=== PATIENT | male | born 1940 | race Caucasian/White ===

== ENCOUNTER 2019-09-01 19:33 | Inpatient (IN) | payer MEDICARE ==
[2019-09-01 19:36] LABS: Glucose,Whole Blood 153 mg/dL (75-99)
--- NOTE | 2019-09-01 20:02 | ED ---
General Adult HPI - General Chief complaint: Neuro Symptoms/Deficit Stated complaint: CVA Time Seen by Provider: 09/01/19 19:34 Source: patient, EMS, RN notes reviewed Mode of arrival: EMS Limitations: physical limitation - History of Present Illness Initial comments: Patient is a pleasant 79-year-old male presenting to the emergency Department with left-sided weakness. Onset of symptoms was around 645. Patient felt lightheaded and lowered himself to the ground. Patient did not fall or have injury. Patient had left arm and leg weakness. Weakness was severe and this was confirmed by EMS. EMS states patient has significantly improved since they first saw him. Patient is agreement with this. Patient reportedly did have slurred speech however this has resolved. Patient reportedly had a near flaccid weakness of the left side. Patient was in hospital at [place] last week. Patient had similar symptoms approximately 5 days ago. Patient states he was just discharged earlier today. - Related Data Allergies Allergy/AdvReac Type Severity Reaction Status Date / Time No Known Allergies Allergy Verified 09/01/19 20:25 Review of Systems ROS Statement: Those systems with pertinent positive or pertinent negative responses have been documented in the HPI. ROS Other: All systems not noted in ROS Statement are negative. Constitutional: Denies: fever Eyes: Denies: eye pain ENT: Denies: ear pain Respiratory: Denies: cough Cardiovascular: Denies: chest pain Endocrine: Denies: fatigue Gastrointestinal: Denies: abdominal pain Genitourinary: Denies: dysuria Musculoskeletal: Denies: back pain Skin: Denies: rash Neurological: Reports: weakness. Denies: headache, confusion Past Medical History Past Medical History: CVA/TIA, Diabetes Mellitus, Hyperlipidemia, Hypertension History of Any Multi-Drug Resistant Organisms: None Reported Past Surgical History: Appendectomy, Hernia Repair, Orthopedic Surgery Additional Past Surgical History / Comment(s): neck cyst ,nasal surgery,rt foot Past Psychological History: No Psychological Hx Reported Smoking Status: Never smoker Past Alcohol Use History: None Reported Past Drug Use History: None Reported General Exam Limitations: physical limitation General appearance: alert, in no apparent distress Head exam: Present: normocephalic Eye exam: Present: normal appearance, PERRL, EOMI ENT exam: Present: normal oropharynx Neck exam: Present: normal inspection Respiratory exam: Present: normal lung sounds bilaterally Cardiovascular Exam: Present: regular rate, normal rhythm GI/Abdominal exam: Present: soft. Absent: tenderness Extremities exam: Present: normal inspection Neurological exam: Present: alert, oriented X3, CN II-XII intact (Except for minimal left facial droop and slight decreased sensation left lower face) Expanded Neurological exam: Present: protecting the airway Patient oriented to: Present: person, place, time Speech: Present: fluid speech Cranial nerves: EOM's Intact: Normal, Facial Sensation: Abnormal Left (Left lower face) Sensory exam: Upper Extremity Light Touch: Normal, Lower Extremity Light Touch: Normal Motor strength exam: RUE: 5, LUE: 4, RLE: 5, LLE: 4 Eye Response: (4) open spontaneously Motor Response: (6) obeys commands Verbal Response: (5) oriented Psychiatric exam: Present: normal affect, normal mood Skin exam: Present: normal color Course Vital Signs 09/01/19 09/01/19 09/01/19 19:35 19:45 20:00 Temperature 98.8 F Pulse Rate 66 68 72 Respiratory 18 20 20 Rate Blood Pressure 142/107 136/82 111/56 O2 Sat by Pulse 96 100 97 Oximetry 09/01/19 09/01/19 20:15 20:30 Temperature 98.0 F Pulse Rate 68 68 Respiratory 18 20 Rate Blood Pressure 99/58 121/65 O2 Sat by Pulse 99 98 Oximetry - Reevaluation(s) Reevaluation #1: 09/01/19 19:[address] Coy who will review the films. He states patient's are not being transferred at this time secondary to covid. 09/01/19 20:40 Dr. Morales did call back again and recommends Balint as well as aspirin and Lipitor. He states patient should be admitted and they can call him if needed. Case also discussed with practitioner Umu Mazariegos who will admit covering for Dr. Tyler, who admits for hospital call. 09/01/19 20:41 Patient reevaluated and does not have apparent weakness of his leg. Arm drift, mild, appears unchanged. EKG Findings - EKG Comments: EKG Findings:: Normal sinus rhythm 73. For screening AV block AL of 202. QRS 78. QT 394. QTC 434. Normal axis. Low QRS voltage. Septal Q waves. No acu te ST change. Medical Decision Making - Lab Data Result diagrams: 09/01/19 19:55 09/01/19 19:55 Lab Results 09/01/19 09/01/19 09/01/19 Range/Units 19:35 19:55 19:55 WBC 8.0 (3.8-10.6) k/uL RBC 4.77 (4.30-5.90) m/uL Hgb 15.5 (13.0-17.5) gm/dL Hct 44.3 (39.0-53.0) % MCV 92.9 (80.0-100.0) fL MCH 32.5 (25.0-35.0) pg MCHC 35.0 (31.0-37.0) g/dL RDW 12.8 (11.5-15.5) % Plt Count 168 (150-450) k/uL Neutrophils % 74 % Lymphocytes % 15 % Monocytes % 7 % Eosinophils % 1 % Basophils % 0 % Neutrophils # 5.9 (1.3-7.7) k/uL Lymphocytes # 1.2 (1.0-4.8) k/uL Monocytes # 0.5 (0-1.0) k/uL Eosinophils # 0.1 (0-0.7) k/uL Basophils # 0.0 (0-0.2) k/uL PT 10.3 (9.0-12.0) sec INR 1.0 (<1.2) APTT 22.7 (22.0-30.0) sec Sodium (137-145) mmol/L Potassium (3.5-5.1) mmol/L Chloride (98-107) mmol/L Carbon Dioxide (22-30) mmol/L Anion Gap mmol/L BUN (9-20) mg/dL Creatinine (0.66-1.25) mg/dL Est GFR (CKD-EPI)AfAm (>60 ml/min/1.73 sqM) Est GFR (CKD-EPI)NonAf (>60 ml/min/1.73 sqM) Glucose (74-99) mg/dL POC Glucose (mg/dL) 153 H (75-99) mg/dL POC Glu Head Doffer ID [place], Krys Calcium (8.4-10.2) mg/dL Total Bilirubin (0.2-1.3) mg/dL AST (17-59) U/L ALT (4-49) U/L Alkaline Phosphatase (38-126) U/L Total Protein (6.3-8.2) g/dL Albumin (3.5-5.0) g/dL 09/01/19 Range/Units 19:55 WBC (3.8-10.6) k/uL RBC (4.30-5.90) m/uL Hgb (13.0-17.5) gm/dL Hct (39.0-53.0) % MCV (80.0-100.0) fL MCH (25.0-35.0) pg MCHC (31.0-37.0) g/dL RDW (11.5-15.5) % Plt Count (150-450) k/uL Neutrophils % % Lymphocytes % % Monocytes % % Eosinophils % % Basophils % % Neutrophils # (1.3-7.7) k/uL Lymphocytes # (1.0-4.8) k/uL Monocytes # (0-1.0) k/uL Eosinophils # (0-0.7) k/uL Basophils # (0-0.2) k/uL PT (9.0-12.0) sec INR (<1.2) APTT (22.0-30.0) sec Sodium 135 L (137-145) mmol/L Potassium 4.6 (3.5-5.1) mmol/L Chloride 101 (98-107) mmol/L Carbon Dioxide 25 (22-30) mmol/L Anion Gap 9 mmol/L BUN 29 H (9-20) mg/dL Creatinine 1.47 H (0.66-1.25) mg/dL Est GFR (CKD-EPI)AfAm 52 (>60 ml/min/1.73 sqM) Est GFR (CKD-EPI)NonAf 45 (>60 ml/min/1.73 sqM) Glucose 150 H (74-99) mg/dL POC Glucose (mg/dL) (75-99) mg/dL POC Glu Head Doffer ID Calcium 10.0 (8.4-10.2) mg/dL Total Bilirubin 0.7 (0.2-1.3) mg/dL AST 29 (17-59) U/L ALT 19 (4-49) U/L Alkaline Phosphatase 74 (38-126) U/L Total Protein 7.3 (6.3-8.2) g/dL Albumin 4.3 (3.5-5.0) g/dL Critical Care Time Critical Care Time: Yes Total Critical Care Time: 31 Disposition Clinical Impression: Cerebrovascular accident (CVA) Disposition: ADMITTED IP TO THIS HOSP Is patient prescribed a controlled substance at d/c from ED?: No Referrals: Stephon Willis MD [Primary Care Provider] - 1-2 days Decision Time: 20:41
--- NOTE | 2019-09-01 20:03 | CT ---
EXAMINATION TYPE: CT brain wo con for TPA DATE OF EXAM: 09/01/2019 COMPARISON: None INDICATION: cva DLP: 1176.4 mGycm, Automated exposure control for dose reduction was used. CONTRAST: None CT of the brain is performed utilizing 3 mm thick sections through the posterior fossa and 3 mm thick sections through the remaining calvarium. Study is performed within 24 hours of arrival to the hosp ital. No abnormal hyperdensity is present to suggest an acute intracranial hemorrhage. No mass lesion is evident. No acute infarcts are evident. There is a hypodensity within the posterior lateral right brain stem. Hypodensity is in the right lisandra. These are age indeterminant. Correlate with symptoms. Ventricles and sulci are appropriate for the patient age. Paranasal sinuses and mastoid air cells within the [id number] are clear. IMPRESSIONS: 1. Hypodensity within the brainstem and right lisandra. These could be lacunar infarcts of indeterminat e age. Correlate with the patient's symptoms.
--- NOTE | 2019-09-01 20:04 | XR ---
EXAMINATION TYPE: XR chest 2V DATE OF EXAM: 09/01/2019 COMPARISON: None INDICATION: Altered mental status TECHNIQUE: Frontal and lateral views of the chest are obtained. FINDINGS: The heart size is normal. The pulmonary vasculature is normal. The lungs are clear. Old right rib fractures along the posterior lateral right ribs. IMPRESSION: 1. No acute pulmonary process.
[2019-09-01 20:08] LABS: Basophils % (A) 0 %; Eosinophils # (A) 0.1 k/uL (0-0.7); Eosinophils % (A) 1 %; HCT 44.3 % (39.0-53.0); HGB 15.5 gm/dL (13.0-17.5); Lymphocytes # (A) 1.2 k/uL (1.0-4.8); Lymphocytes % (A) 15 %; MCH 32.5 pg (25.0-35.0); MCV 92.9 fL (80.0-100.0); Mean Platelet Volume 8.2; Monocytes # (A) 0.5 k/uL (0-1.0); Monocytes % (A) 7 %; Neutrophils # (A) 5.9 k/uL (1.3-7.7); Neutrophils % (A) 74 %; Platelet Count 168 k/uL (150-450); RBC 4.77 m/uL (4.30-5.90); RDW 12.8 % (11.5-15.5)
[2019-09-01 20:16] LABS: Partial Thromboplastin Time 22.7 sec (22.0-30.0); Prothrombin Time 10.3 sec (9.0-12.0)
[2019-09-01 20:36] LABS: Albumin 4.3 g/dL (3.5-5.0); Potassium 4.6 mmol/L (3.5-5.1); Total Bilirubin 0.7 mg/dL (0.2-1.3); Total Protein 7.3 g/dL (6.3-8.2)
[2019-09-01] MEDS ORDERED: ASPIRIN 81 MG PO STA (20:42)
[2019-09-01] MEDS ORDERED: TICAGRELOR 90 MG TAB PO STA (20:42)
[2019-09-01] MEDS ORDERED: ATORVASTATIN 80 MG TAB PO STA (20:42)
--- NOTE | 2019-09-01 20:54 | CT ---
EXAMINATION TYPE: CT angio head neck DATE OF EXAM: 09/01/2019 COMPARISON: CT brain today HISTORY: 79-year-old male CVA, stroke TECHNIQUE: Contiguous axial scanning of the head and neck performed with IV Contrast, patient injecte d with 65 mL of Isovue 370. Coronal and sagittal MIP reconstructions performed. 3-D reconstructions w ill be generated later. CT DLP: 571 mGycm Automated exposure control for dose reduction was used. FINDINGS: HEAD: Left vertebral artery slightly more dominant. Both vertebral and basilar arteries are patent as is th e remainder of the posterior circulation. Mild to moderate atherosclerotic change throughout the bilateral carotid siphons. No significant sten osis is identified of the anterior circulation and no evident occlusion of the internal carotid arter ies. No aneurysmal change is seen. NECK: Mild emphysematous changes in the visualized upper lungs. Conventional arch was a branching anatomy. Mild atherosclerotic calcifications at the origin of the right vertebral artery. Left vertebral arter y slightly more dominant. Both vertebral arteries are otherwise patent throughout their course. The right common carotid artery is patent. Moderate atherosclerotic change of the right bifurcation. Mild, less than 50% atherosclerotic narrowing distal right common carotid artery. Mild to moderate, approximately 50% narrowing right carotid bulb. Remainder of the right internal car otid artery is patent. Left common carotid artery is patent. Moderate atherosclerotic change of the left bifurcation with [id number], just under 50% atheros clerotic narrowing at the left carotid bulb. Remainder of the left internal carotid artery is patent. IMPRESSION: NECK: 1. ATHEROSCLEROTIC CHANGE AT THE BILATERAL CAROTID BIFURCATIONS WITH MODERATE (APPROXIMATELY 50%) JOSE MIGUEL NOSIS OF THE RIGHT CAROTID BULB. ADDITIONAL MILD, LESS THAN 50% ATHEROSCLEROTIC STENOSIS DISTAL RIGHT COMMON CAROTID ARTERY. 2. MILD TO MODERATE, JUST UNDER 50% NARROWING AT THE LEFT CAROTID BULB. 3. SLIGHTLY DOMINANT LEFT VERTEBRAL ARTERY. MILD ATHEROSCLEROTIC NARROWING AT THE ORIGIN OF THE RIGHT VERTEBRAL ARTERY. HEAD: 1. MILD TO MODERATE ATHEROSCLEROTIC CALCIFICATIONS THROUGHOUT THE BILATERAL CAROTID SIPHONS. NO LARGE VESSEL INTRACRANIAL ARTERIAL OCCLUSION, SIGNIFICANT STENOSIS, OR ANEURYSMAL CHANGE SEEN. 2. SLIGHTLY MORE DOMINANT LEFT VERTEBRAL ARTERY.
[2019-09-01] MEDS: SODIUM CHLORIDE 0.9% 1,000 ML IV SCH (20:57)
[2019-09-01] MEDS: TICAGRELOR 90 MG TAB PO SCH (21:35)
[2019-09-01] MEDS: ATORVASTATIN 80 MG TAB PO SCH (21:35)
[2019-09-02 03:58] LABS: Cholesterol 117 mg/dL (<200); HDL Cholesterol 39 mg/dL (40-60); LDL Cholesterol,Calculated 61 mg/dL (0-99); Triglycerides 85 mg/dL (<150)
[2019-09-02] MEDS: TICAGRELOR 90 MG TAB PO SCH (09:24)
[2019-09-02] MEDS: ASPIRIN 81 MG PO SCH (09:24)
[2019-09-02] MEDS ORDERED: ACETAMINOPHEN TAB 500 MG TAB PO PRN (13:23)
[2019-09-02] MEDS ORDERED: ALPRAZolam 0.25 MG TAB PO PRN (13:23)
--- NOTE | 2019-09-02 15:11 | MR ---
EXAMINATION TYPE: MR angio head wo con DATE OF EXAM: 09/02/2019 COMPARISON: Correlation CTA 2019 HISTORY: 79-year-old male Dizziness, slurred speech, left arm weakness/numbness TECHNIQUE: High-resolution 3-D [id number] imaging of the [place]. Rotational 3-D reconst ructions generated on a dedicated independent workstation. FINDINGS: Dominant left vertebral artery. Both vertebral and basilar arteries are patent as is the remainder of the posterior circulation. Prominent right posterior communicating artery. Minimal atherosclerotic irregularity within the carotid siphons without significant narrowing. The an terior circulation is patent. No aneurysmal change is seen. IMPRESSION: No large vessel intracranial arterial occlusion, significant stenosis, or aneurysmal change.
--- NOTE | 2019-09-02 15:35 | HP ---
HISTORY AND PHYSICAL DATE OF SERVICE: 09/02/2019 CHIEF COMPLAINTS: Left-sided weakness and some dysarthria. HISTORY OF PRESENT ILLNESS: This 79-year-old gentleman with a past medical history of multiple medical problems including diabetes, hypertension, hyperlipidemia, appendectomy being followed by Dr. Willis in the outpatient setting was recently admitted to [facility] with complaints of left-sided weakness. The patient went to the hospital and the patient had multiple evaluations, CT scan, MRI, exact details are unknown at this time. Apparently patient thought to have some stenosis of the arteries in the back of the head, but currently patient returned back home and then within a few hours the patient had slurring of speech, recurrence of symptoms including left-sided weakness and the patient was taken to [facility] and admitted for evaluation and treatment. The initial evaluation including CT of the brain showed hypodensity in the brainstem in the right lisandra. Otherwise, a CT angio showed bilateral carotid bifurcation with moderate 50% stenosis and slightly dominant left vertebral artery with mild atherosclerotic narrowing in the origin of the right vertebral artery also noted, diffuse calcification also noted. There is no history of fever, rigors, chills at this time. PAST MEDICAL HISTORY: History of diabetes mellitus type 2, hypertension, hyperlipidemia, history of appendectomy history of hernia surgery and recent stroke. MEDICATIONS: Medications are: 1. Glucophage 500 mg p.o. b.i.d. 2. Lipitor 40 mg at bedtime. 3. Norvasc 5 mg p.o. daily. 4. Flomax 0.8 mg daily. 5. Cozaar 12.5 mg daily. 6. Proscar 5 mg p.o. daily. 7. Ecotrin 81 mg daily. 8. Plavix 75 mg p.o. daily. ALLERGIES: Allergies are none. FAMILY HISTORY: No history of heart disease or strokes in the family. SOCIAL HISTORY: No history of smoking. No history of alcohol. REVIEW OF SYSTEMS: ENT: Diminished hearing and diminished vision. CARDIOVASCULAR SYSTEM: No angina. RESPIRATORY SYSTEM: No cough. GI: As mentioned earlier. : No dysuria. NERVOUS SYSTEM: As mentioned earlier. ALLERGY/IMMUNOLOGY: No asthma or hayfever. MUSCULOSKELETAL: As mentioned earlier. HEMATOLOGY/ONCOLOGY: No history of anemia. ENDOCRINE: Diabetes mellitus. No hypothyroidism. CONSTITUTIONAL: As mentioned earlier. DERMATOLOGY: Negative. RHEUMATOLOGY: Negative. PSYCHIATRY: As mentioned earlier. PHYSICAL EXAMINATION: Patient is alert and oriented x3. Pulse 74, blood pressure 142/79, respirations 16, temperature 98.5, pulse ox 98% on room air. HEENT: Conjunctivae normal. Oral mucosa moist. NECK: No jugular venous distention. No carotid bruit. No lymph node enlargement. CARDIOVASCULAR: S1, S2 muffled. RESPIRATORY: Breath sounds diminished at the bases. No rhonchi, no crackles. ABDOMEN: Soft, nontender. No mass palpable. LEGS: No edema, no swelling. NERVOUS SYSTEM: Higher functions as mentioned earlier. Cranial nerves left lateral rectus paralysis present and also suggestion of also present on the left side. Otherwise, no facial deviation. The power is minimally diminished on the left side with some mild cerebral incoordination on the left upper and lower limbs. SKIN: No ulcer, rash or bleeding. JOINTS: No active deforming arthropathy. LABS: CBC within normal limits. Sodium 135, potassium 4.6, creatinine 1.47 and HDL is 39. ASSESSMENT: 1. Acute brainstem stroke on the right lisandra possibly causing the left-sided weakness. 2. Hyponatremia. 3. Increased creatinine with possible chronic kidney disease stage 3. 4. Diabetes mellitus type 2. 5. Hypertension. 6. Hyperlipidemia. 7. History of appendectomy. 8. History of degenerative joint disease. 9. History of hernia repair. RECOMMENDATIONS AND DISCUSSION: This 79-year-old gentleman who presented with multiple complex medical issues, we will monitor the patient closely. Continue the current medications. Continue symptomatic treatment. Will initiate dual antiplatelet agent treatment. Otherwise, Neurology and Vascular Surgery will be consulted and monitor blood sugars closely. Overall prognosis extremely guarded because of multiple complex medical issues. Further recommendations to follow. A copy of this dictation forwarded to Dr. Willis who is the primary physician. Discussed with the patient and discussed with staff. MMODL / IJN: [id number] / MARY
--- NOTE | 2019-09-02 16:09 | MR ---
EXAMINATION TYPE: MR brain wo/w con DATE OF EXAM: 09/02/2019 COMPARISON: 09/01/2011, 09/02/2019 HISTORY: Dizziness, slurred speech, lt arm weakness/numbness TECHNIQUE: Multiplanar, multisequence images of the brain and brainstem is performed without and with IV contras t, utilizing 7.5 mL intravenous Gadavist . FINDINGS: Diffusion weighted images demonstrates a area of abnormal signal involving the lisandra on the right measuring 1 cm. There is moderate degenerative change of the greater frontal lobe component. A carlee of reduced signal involving the lisandra measuring 1 mm nonspecific could represent a tiny calcificat ion or tiny vascular anomaly. Areas of abnormal signal within the white matter are nonspecific but mo st typical remote ischemic change. No midline shift or mass effect. Craniocervical junction maintained. Sella turcica has a normal appea fredy. Intraorbital structures have a normal appearance. Changes of chronic sinusitis are noted involving et hmoid air cells. No midline shift or mass effect. IMPRESSION: 1. Acute stroke involving the lisandra on the right measuring 1 cm. Report called to patient's referring clinician and nurse. See above.
[2019-09-02] MEDS: SODIUM CHLORIDE 0.9% 1,000 ML IV SCH (17:08)
[2019-09-02 17:12] LABS: Glucose,Whole Blood 113 mg/dL (75-99)
[2019-09-02] MEDS: INSULIN ASPART (NovoLOG) 100 UNIT/ML VIAL SQ SCH ×2 (17:12→21:49)
[2019-09-02] MEDS: LOSARTAN 25 MG TAB PO SCH (17:13)
[2019-09-02] MEDS: PANTOPRAZOLE 40 MG TABLET PO SCH (17:13)
[2019-09-02] MEDS: TAMSULOSIN 0.4 MG CAP.ER.24H PO SCH (17:13)
[2019-09-02] MEDS: FINASTERIDE 5 MG TAB PO SCH (17:14)
[2019-09-02 18:31] LABS: Appearance,Urine Clear (Clear); Bilirubin,Urine Negative (Negative); Blood,Urine Negative (Negative); Color,Urine Light Yellow; Glucose,Urine (UA) Negative (Negative); Ketones,Urine Negative (Negative); Leukocyte Esterase,Urine Negative (Negative); Nitrite,Urine Negative (Negative); PH, Urine 5.5 (5.0-8.0); Protein,Urine Negative (Negative); Specific Gravity,Urine 1.017 (1.001-1.035); Urobilinogen,Urine <2.0 mg/dL (<2.0)
[2019-09-02 20:44] LABS: Glucose,Whole Blood 154 mg/dL (75-99)
[2019-09-02] MEDS: ATORVASTATIN 80 MG TAB PO SCH (21:47)
[2019-09-02] MEDS: HEPARIN SODIUM,PORCINE 5,000 UNIT/ML 1 ML VIAL SQ SCH (21:47)
[2019-09-02] MEDS: metFORMIN 500 MG TAB PO SCH (21:47)
[2019-09-03 05:52] LABS: Glucose,Whole Blood 130 mg/dL (75-99)
[2019-09-03] MEDS: INSULIN ASPART (NovoLOG) 100 UNIT/ML VIAL SQ SCH ×4 (06:04→20:05)
[2019-09-03] MEDS: PANTOPRAZOLE 40 MG TABLET PO SCH (06:19)
[2019-09-03 06:59] LABS: Calcium 9.2 mg/dL (8.4-10.2); Potassium 4.1 mmol/L (3.5-5.1)
[2019-09-03] MEDS: TAMSULOSIN 0.4 MG CAP.ER.24H PO SCH (08:06)
[2019-09-03] MEDS: amLODIPine 5 MG TAB PO SCH (08:06)
[2019-09-03] MEDS: FINASTERIDE 5 MG TAB PO SCH (08:06)
[2019-09-03] MEDS: LOSARTAN 25 MG TAB PO SCH (08:07)
[2019-09-03] MEDS: CLOPIDOGREL 75 MG TAB PO SCH (08:07)
[2019-09-03] MEDS: ASPIRIN 81 MG PO SCH (08:07)
[2019-09-03] MEDS: metFORMIN 500 MG TAB PO SCH ×2 (08:07→20:05)
[2019-09-03] MEDS: HEPARIN SODIUM,PORCINE 5,000 UNIT/ML 1 ML VIAL SQ SCH ×2 (08:07→20:05)
[2019-09-03] MEDS ORDERED: NON FORMULARY DRUG (Aspirin [Adult Low Dose Aspirin Ec] 81 MG) PO SCH (09:00)
--- NOTE | 2019-09-03 10:31 | US ---
EXAMINATION TYPE: US carotid duplex BILAT DATE OF EXAM: 09/03/2019 COMPARISON: NONE CLINICAL HISTORY: carotid stenosis, cva. EXAM MEASUREMENTS: RIGHT: Peak Systolic Velocity (PSV) cm/sec ----- Right CCA: 59.8 ----- Right ICA: 67.4 ----- Right ECA: 97.1 ICA/CCA ratio: 1.1 RIGHT: End Diastole cm/sec ----- Right CCA: 15.8 ----- Right ICA: 19.3 ----- Right ECA: 5.5 LEFT: Peak Systolic Velocity (PSV) cm/sec ----- Left CCA: 64.2 ----- Left ICA: 88.5 ----- Left ECA: 61.5 ICA/CCA ratio: 1.4 LEFT: End Diastole cm/sec ----- Left CCA: 10.3 ----- Left ICA: 39.0 ----- Left ECA: 9.4 VERTEBRALS (direction of flow): Right Vertebral: Antegrade Left Vertebral: Antegrade Rhythm: Arrhythmia Severe atherosclerotic changes seen in bilateral bulbs extending into ICA's, worse on the right, with out significant velocity increases. IMPRESSION: I DO NOT SEE EVIDENCE OF A HEMODYNAMICALLY SIGNIFICANT STENOSIS IN EITHER CAROTID SYSTEM. Criteria for Assigning % of Stenosis / Diameter reduction (Estimation based on the indirect measurements of the internal carotid artery velocities (ICA PSV). 1. Normal (no stenosis)=ICA PSV < 125 cm/s: ratio < 2.0: ICA EDV<40 cm/s. 2. Less than 50% stenosis=ICA PSV < 125 cm/s: ratio < 2.0: ICA EDV<40 cm/s. 3. 50 to 69% stenosis=ICA PSV of 125 to 230 cm/s: ration 2.0 ? 4.0: ICA EDV 40-100 cm/s. 4. Greater than 70% stenosis to near occlusion= ICA PSV > 230 cm/s: ratio > 4.0: ICA EDV > 100 cm/s. 5. Near occlusion= ICA PSV velocities may be low or undetectable: variable ratio and ICA EDV. 6. Total occlusion=unable to detect flow.
--- NOTE | 2019-09-03 10:39 | CT ---
EXAMINATION TYPE: CT brain wo con DATE OF EXAM: 09/03/2019 COMPARISON: Previous study dated 09/01/2019. HISTORY: Follow up scan per patient. CT DLP: 1201.4 mGycm Automated exposure control for dose reduction was used. FINDINGS: There is a 1 cm hypodensity in the right side of the lisandra. This was present previously on both CT and MR a soft represent an acute pontine infarct. Central structures are midline. There is no evidence of hydrocephalus. No other acute focal lesion, m ass effect or midline shift is seen. I do not see evidence of intracranial blood. Visualized portions of the paranasal sinuses and mastoids are clear. The bony calvarium is intact. IMPRESSION: EVIDENCE OF A RIGHT-SIDED PONTINE INFARCT WHICH IS BEEN PRESENT ON A PREVIOUS MRI DATED 09/02/2019 AND ALSO ON A PREVIOUS CT OF THE BRAIN DATED 09/01/2019.
--- NOTE | 2019-09-03 11:41 | CONS ---
CONSULTATION CHIEF COMPLAINT: Cerebrovascular accident. Mr. Haddad is a 79-year-old gentleman with multiple medical problems including hypertension, diabetes, dyslipidemia, who is admitted to the hospital having had stroke. He initially presented to [facility] with left-sided weakness. He was discharged home and subsequently a few hours after going home, developed slurred speech and left-sided weakness again and EMS brought him to [facility]. Initial CT scan showed a hyperdense lesion within the brainstem in the right lisandra. The CT angio showed a moderate carotid stenosis and cardiology has been consulted because of CVA and episodes of atrial fibrillation last night. He had an MRI after coming to [place] that revealed an acute stroke involving the lisandra on the right side. A neurologist is involved in his care through robot. His admission EKG shows that he is in sinus rhythm with first-degree AV block and last night around 1:00 he developed short self-limited runs of atrial fibrillation. His rhythm strips from the time showed that he was in atrial fibrillation. The patient benefits from anticoagulation with Eliquis, Xarelto and IV heparin and we are going to start this if and when it is okay with the neurologist. I asked Charlene, the nurse who is taking care of the patient, to call the neurologist who is providing telehealth services to address this issue as unfortunately this hospital does not have a neurologist on-call over the weekend. The patient clinically is feeling better. This morning he is in sinus rhythm and his neurological symptoms have improved. He, of course, has other stroke risk factors including hypertension, diabetes, dyslipidemia. I am going to obtain an echocardiogram on him to assess his LV function, having documented an episode of atrial fibrillation. I do not see the need to perform a BART on him. PAST MEDICAL HISTORY: Significant for hypertension, diabetes, dyslipidemia. MEDICATIONS: Include Glucophage 500 b.i.d., Lipitor 40 daily, Norvasc 5 daily, Flomax, Cozaar, Proscar, aspirin and Plavix. We can stop the Plavix when we start the Eliquis. ALLERGIES: No known drug allergies. FAMILY HISTORY: Negative for premature coronary artery disease. SOCIAL HISTORY: Negative for current smoking, EtOH abuse, or drug abuse. REVIEW OF SYSTEMS: HEENT is unremarkable. Cardiac as described above. Respiratory as described above. GI negative. Genitourinary negative. Allergy none. Immunology negative. Skin negative. Musculoskeletal negative. Endocrine negative. Derm negative. Constitutional negative. PRODUCTION MANAGER as described above. Rest of the system review is not relevant. EXAM: Patient is afebrile. Heart rate is around 100 beats per minute. Blood pressure is 127/60, O2 sat is 94%. There is no jugular venous distention. Carotid upstroke is normal. There is no bruit. Chest exam reveals good air entry bilaterally. Heart exam reveals first and second heart sounds. I do not hear any gallop. No murmur. No rub. Abdomen is soft. Exam of extremities did not reveal any edema. Peripheral pulses are felt. Detailed PRODUCTION MANAGER exam has not been done. Initial EKG shows sinus rhythm. Rhythm strips from early this morning show that he had atrial fibrillation. ASSESSMENT: 1. Acute brainstem cerebrovascular accident probably secondary to thromboembolic phenomenon related to underlying atrial fibrillation. 2. Hypertension. 3. Diabetes. 4. Dyslipidemia. PLAN: Patient will start Eliquis if okay with the neurologist. Patient follows with a medication assistant from [place]. Thank you for allowing us to participate in the care of this pleasant gentleman. We will follow him through his hospital stay. MMODL / IJN: [id number] /
[2019-09-03 11:45] LABS: Glucose,Whole Blood 148 mg/dL (75-99)
--- NOTE | 2019-09-03 14:22 | P.GSCN ---
History of Present Illness Consult date: 09/03/19 Reason for Consult: CVA and carotid stenosis Requesting physician: Jarret Tyler History of present illness: 79 year old male with PMH of hypertension, diabetes, dyslipidemia presented to the hospital secondary to stroke. Patient states having two episodes of left sided weakness and speech issues which he first went to [facility] and was admitted with workup and ultimately discharged home. Once he was home he had another episode including passing out and was brought to [facility] ER at that time. He underwent a CT brain which showed a hyperdense lesion within the brainstem and right lisandra. He also had a CT angiogram which demonstrated moderate carotid stenosis bilaterally. He states that Miracle he also had a workup which demonstrated less than 50% stenosis of bilateral carotid arteries. He had a carotid duplex performed today which demonstrates less than 50% stenosis of bilateral internal carotid arteries. Overnight he had an episode of atrial fibrillation and therefore cardiology has been consulted. Currently he denies any weakness or speech issues as well as any visual changes. Denies any fevers, chills, chest pain or shortness of breath. Review of Systems All systems: negative (for what is mentioned in the HPI past medical history.) Past Medical History Past Medical History: CVA/TIA, Diabetes Mellitus, Hyperlipidemia, Hypertension History of Any Multi-Drug Resistant Organisms: None Reported Past Surgical History: Appendectomy, Hernia Repair, Orthopedic Surgery Additional Past Surgical History / Comment(s): neck cyst ,nasal surgery,rt foot Past Psychological History: No Psychological Hx Reported Smoking Status: Never smoker Past Alcohol Use History: None Reported Past Drug Use History: None Reported Medications and Allergies Home Medications Medication Instructions Recorded Confirmed Type Aspirin [Adult Low Dose Aspirin EC] 81 mg PO DAILY 09/01/19 09/01/19 History Atorvastatin Calcium [Lipitor] 40 mg PO HS 09/01/19 09/01/19 History Clopidogrel [Plavix] 75 mg PO DAILY 09/01/19 09/01/19 History Finasteride [Proscar] 5 mg PO DAILY 09/01/19 09/01/19 History Losartan Potassium [Cozaar] 12.5 mg PO DAILY 09/01/19 09/01/19 History Tamsulosin HCl [Flomax] 0.8 mg PO DAILY 09/01/19 09/01/19 History amLODIPine [Norvasc] 5 mg PO DAILY 09/01/19 09/01/19 History metFORMIN HCL [Glucophage] 500 mg PO BID 09/01/19 09/01/19 History Allergies Allergy/AdvReac Type Severity Reaction Status Date / Time No Known Allergies Allergy Verified 09/01/19 20:25 Surgical - Exam Vital Signs Temp Pulse Resp BP Pulse Ox 98.8 F 66 18 142/107 96 09/01/19 19:35 09/01/19 19:35 09/01/19 19:35 09/01/19 19:35 09/01/19 19:35 Palpable radial pulses bilaterally. - General well developed, well nourished, no distress - Eyes PERRL, normal ocular movement - ENT normal pinna, normal nares - Neck no masses, no bruits - Respiratory normal expansion, normal respiratory effort - Cardiovascular Rhythm: irregularly irregular - Abdomen Abdomen: soft - Integumentary no rash, no growths - Neurologic normal coordination, normal sensation - Musculoskeletal normal gait - Psychiatric oriented to time, oriented to place, speech is normal Results - Labs 09/01/19 19:55 09/03/19 06:09 Abnormal Lab Results - Last 24 Hours (Table) 09/02/19 09/02/19 09/03/19 Range/Units 17:10 20:42 05:51 BUN (9-20) mg/dL Glucose (74-99) mg/dL POC Glucose (mg/dL) 113 H 154 H 130 H (75-99) mg/dL 09/03/19 09/03/19 Range/Units 06:09 11:43 BUN 23 H (9-20) mg/dL Glucose 136 H (74-99) mg/dL POC Glucose (mg/dL) 148 H (75-99) mg/dL Diabetes panel 09/03/19 Range/Units 06:09 Sodium 137 (137-145) mmol/L Potassium 4.1 (3.5-5.1) mmol/L Chloride 103 (98-107) mmol/L Carbon Dioxide 26 (22-30) mmol/L BUN 23 H (9-20) mg/dL Creatinine 1.10 (0.66-1.25) mg/dL Glucose 136 H (74-99) mg/dL Calcium 9.2 (8.4-10.2) mg/dL Calcium panel 09/03/19 Range/Units 06:09 Calcium 9.2 (8.4-10.2) mg/dL Pituitary panel 09/03/19 Range/Units 06:09 Sodium 137 (137-145) mmol/L Potassium 4.1 (3.5-5.1) mmol/L Chloride 103 (98-107) mmol/L Carbon Dioxide 26 (22-30) mmol/L BUN 23 H (9-20) mg/dL Creatinine 1.10 (0.66-1.25) mg/dL Glucose 136 H (74-99) mg/dL Calcium 9.2 (8.4-10.2) mg/dL Adrenal panel 09/03/19 Range/Units 06:09 Sodium 137 (137-145) mmol/L Potassium 4.1 (3.5-5.1) mmol/L Chloride 103 (98-107) mmol/L Carbon Dioxide 26 (22-30) mmol/L BUN 23 H (9-20) mg/dL Creatinine 1.10 (0.66-1.25) mg/dL Glucose 136 H (74-99) mg/dL Calcium 9.2 (8.4-10.2) mg/dL - Imaging Comments: CT brain reviewed demonstrating hyperdensity within the brainstem and right lisandra. CTA of the neck was also reviewed demonstrating mild stenosis of bilateral internal carotid arteries. Carotid duplex was also reviewed which demonstrates less than 50% stenosis bilaterally. Assessment and Plan Assessment: 1. acute brainstem through a vascular accident likely secondary to thromboembolic disease related to atrial fibrillation. 2. Bilateral carotid artery stenosis less than 50% 3. New onset atrial fibrillation 4. Hypertension 5. Diabetes Plan: I reviewed all his imaging with him in full detail to his complete understanding. At this time I agree with medical treatment of his atrial fibrillation. We will continue to monitor his carotid disease as an outpatient which he will need carotid duplex follow-up yearly. Thank you for allowing me to participate in your patient's care.
[2019-09-03 17:07] LABS: Glucose,Whole Blood 129 mg/dL (75-99)
--- NOTE | 2019-09-03 18:32 | PN ---
PROGRESS NOTE DATE OF SERVICE: 09/03/2019 This 79-year-old gentleman admitted with left-sided weakness and dysarthria, also had eye movement abnormalities. The patient also had MRI of the brain and as well as CT of the brain which showed 1.1 cm lesion in the right lisandra initiating a pontine infarct. Neurology is following the patient closely. Neurovascular workup is also in progress. Dr. Granger has seen the patient from the vascular surgery point of view and recommended continued medical treatment. The patient had bilateral carotid stenosis less than 50%. The patient also found to have paroxysmal atrial fibrillation. Cardiology also being consulted. PAST MEDICAL HISTORY: Reviewed. REVIEW OF SYSTEMS: ENT as mentioned earlier. Cardiovascular: No angina or palpitations, otherwise, as mentioned earlier. Respiration no cough. GI as mentioned earlier. no dysuria or retention. CURRENT MEDICATIONS ARE: 1. Tylenol 500 mg q.6h p.r.n. 2. Xanax. 3. Norvasc 5 mg. 4. Aspirin 81 mg. 5. Lipitor 80 mg. 6. Plavix 75 mg daily. 7. Proscar 5 mg p.o. daily. 8. Heparin 5000 subcu b.i.d. 9. NovoLog scale. 10.Cozaar 12.5 mg daily. 11.Glucophage 500 mg p.o. b.i.d. 12.Protonix 40 mg b.i.d. 13.Flomax 0.8 daily. PHYSICAL EXAMINATION: Patient is alert, oriented x3. Mildly dysarthric. Pulse is 100. Blood pressure 127/64, respirations 16, temp 98.2, pulse ox 94% on room air. HEENT: Conjunctivae normal. Oral mucosa moist. NECK is no jugular venous distention. No carotid bruit. No lymph node enlargement. CARDIOVASCULAR systems: S1, S2 muffled. RESPIRATION: Breath sounds diminished in the bases. No rhonchi. No crackles. ABDOMEN: Soft, nontender. No mass palpable. LEGS no edema. No swelling. NERVOUS SYSTEM: Higher functions as mentioned earlier. The lateral rectus paralysis on the right side and some conjugate difficulties also noted. Flattening of the left side of the face and minimal weakness and the finger-nose incoordination on the left upper limb. Gait dysfunction present. SKIN: No ulcers. No rashes and no bleeding. JOINTS: No active deforming arthropathy. LABS: Sodium 137. CBC noted. ASSESSMENT: 1. 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 2. Hyponatremia. 3. Bilateral carotid artery stenosis less than 50%. 4. Acute renal failure with acute prerenal renal failure factors and acute tubular necrosis. 5. Continued symptomatic dizziness and gait dysfunction. 6. Increased creatinine with possible chronic kidney stage III. 7. Diabetes mellitus type 2. 8. Hypertension. 9. Hyperlipidemia. 10.History of appendectomy. 11.History of degenerative joint disease. 12.History of hernia repair. RECOMMENDATIONS AND DISCUSSION: Recommend to continue current medications, monitoring, management and symptomatic treatment. Otherwise, continue with antiplatelet agents. Neurology evaluation. Neuro checks. Otherwise, I would recommend ambulation only and supervised. Continue to follow the rest of the medications. The creatinine is improving at this time at 1.10. I would continue to monitor. Otherwise, PT/OT will be consulted for possible ECF rehab and the patient lives with the at home. Speech pathology is also being consulted. Once again, the prognosis guarded because of multiple complex medical issues. Further recommendations to follow. MMODL / IJN: [id number] /
[2019-09-03 20:05] LABS: Glucose,Whole Blood 427 mg/dL (75-99)
[2019-09-03 20:05] LABS: Glucose,Whole Blood 322 mg/dL (75-99)
[2019-09-03] MEDS: ATORVASTATIN 80 MG TAB PO SCH (20:05)
[2019-09-04 05:42] LABS: Glucose,Whole Blood 118 mg/dL (75-99)
[2019-09-04] MEDS: INSULIN ASPART (NovoLOG) 100 UNIT/ML VIAL SQ SCH ×4 (05:50→20:20)
[2019-09-04] MEDS: PANTOPRAZOLE 40 MG TABLET PO SCH (06:03)
[2019-09-04 06:20] LABS: Calcium 9.2 mg/dL (8.4-10.2)
[2019-09-04] MEDS: TAMSULOSIN 0.4 MG CAP.ER.24H PO SCH (08:25)
[2019-09-04] MEDS: LOSARTAN 25 MG TAB PO SCH (08:25)
[2019-09-04] MEDS: FINASTERIDE 5 MG TAB PO SCH (08:25)
[2019-09-04] MEDS: HEPARIN SODIUM,PORCINE 5,000 UNIT/ML 1 ML VIAL SQ SCH ×2 (08:25→20:20)
[2019-09-04] MEDS: CLOPIDOGREL 75 MG TAB PO SCH (08:25)
[2019-09-04] MEDS: amLODIPine 5 MG TAB PO SCH (08:25)
[2019-09-04] MEDS: metFORMIN 500 MG TAB PO SCH ×2 (08:26→20:20)
[2019-09-04] MEDS: ASPIRIN 81 MG PO SCH (08:26)
[2019-09-04 11:32] LABS: Glucose,Whole Blood 155 mg/dL (75-99)
--- NOTE | 2019-09-04 11:58 | ECHOF ---
Referral Reason:new onset a-fib MEASUREMENTS -------- HEIGHT: 177.8 cm WEIGHT: 81.6 kg BP: 108/65 RVIDd: 3.1 cm (< 3.3) IVSd: 1.2 cm (0.6 - 1.1) LVIDd: 3.8 cm (3.9 - 5.3) LVPWd: 1.2 cm (0.6 - 1.1) IVSs: 1.7 cm LVIDs: 2.5 cm LVPWs: 1.6 cm LA Diam: 3.5 cm (2.7 - 3.8) LAESV Index (A-L): 23.60 ml/m Ao Diam: 3.3 cm (2.0 - 3.7) AV Cusp: 2.3 cm (1.5 - 2.6) MV EXCURSION: 20.824 mm (> 18.000) MV EF SLOPE: 141 mm/s (70 - 150) EPSS: 0.7 cm RAP: 5.00 mmHg RVSP: 28.31 mmHg TAPSE: 16.23 mm FINDINGS -------- Atrial fibrillation. This was a technically adequate study. The left ventricular size is normal. There is borderline concentric left ventricular hypertrophy. Overall left ventricular systolic function is low-normal with, an EF between 50 - 55 %. The right ventricle is normal in size. Normal LA size by volume 22+/-6 ml/m2. The right atrial size is normal. Interatrial and interventricular septum intact. There is mild aortic valve sclerosis. The mitral valve leaflets are mildly thickened. There is trace to mild mitral regurgitation. Mild tricuspid regurgitation present. Right ventricular systolic pressure is normal at < 35 mmHg. The pulmonic valve was not well visualized. There is no pulmonic regurgitation present. The aortic root size is normal. IVC Not well visulized. There is no pericardial effusion. CONCLUSIONS -------- 1. Atrial fibrillation. 2. There is borderline concentric left ventricular hypertrophy. 3. Overall left ventricular systolic function is low-normal with, an EF between 50 - 55 %. 4. Normal LA size by volume 22+/-6 ml/m2. 5. There is mild aortic valve sclerosis. 6. There is trace to mild mitral regurgitation. 7. Mild tricuspid regurgitation present. LYE MACHINE OPERATOR: Carina Azul RDCS
[2019-09-04] MEDS: METOPROLOL TARTRATE 50 MG TAB PO SCH ×2 (13:02→20:20)
--- NOTE | 2019-09-04 13:16 | PN ---
PROGRESS NOTE Mr. Haddad came in with what seems to be an embolic CVA with good recovery. He is in atrial fib rate is fairly well controlled. He is actually going in and out of atrial fib, hemodynamically stable. We are awaiting further input from Neurology. He is on aspirin and Plavix. He needs to be anticoagulated. I would await further input from Neurology before anticoagulating the patient with recent stroke. The size of the stroke does not appear to be large. Vitals are stable. He is in atrial fib, rate control is fairly decent. Earlier today he was in a sinus rhythm. I am recommending that we increase his beta johanna to 50 mg b.i.d. He has underlying atrial fibrillation. He is on aspirin and Plavix. Patient will need to be anticoagulated and I will await further input from Neurology. Blood pressure is 120/70, pulse rate is about 90 to 100 irregular. JVD 1 cm. No carotid bruit. S1, S2 with a regular rate and rhythm noted. Short systolic murmur noted. Lungs reveal diminished air entry. Abdomen and lower extremity exam unchanged. Neurologically, I cannot find any significant neurological deficits, but I did not do a detailed exam. RECOMMENDATIONS: The patient will need to be on anticoagulation. However, I will await further input and direction from Neurology before this is initiated. Hopefully we will have a neurologist who will see the patient. There is a brainstem related vascular accident probably thromboembolic in nature, but carotid stenosis is unremarkable. Atrial fibrillation is noted. Rate control will be optimized. Prognosis remains guarded. MMODL / IJN: [id number] /
[2019-09-04 18:23] LABS: Glucose,Whole Blood 196 mg/dL (75-99)
[2019-09-04 19:55] LABS: Glucose,Whole Blood 165 mg/dL (75-99)
--- NOTE | 2019-09-04 20:03 | P.CNNES ---
History of Present Illness Consult date: 09/04/19 Requesting physician: Saba Butt Reason for Consult: CVA History of Present Illness: Patient is a 79-year-old male, who came to the hospital on 09/01/2019 at 7:33 PM, with left-sided weakness. Patient states that his symptoms started on 08/29/2019, when he was sitting in the car, when he suddenly became intensely dizzy. He states that he pulled over, laid down, and symptoms got better in 10-15 minutes. He was then able to drive at home. The next day on 08/30/2019, he was not looking well, and states he felt "like crap". He was taken to [facility] in [facility], where he underwent MRI, computed tomography scan and was diagnosed with stroke. He stayed there for 2 days and was discharged on Plavix, on 09/01/2019. Patient states that he went to the pharmacy, took the prescription and then felt dizzy, and had a near syncopal spell. He was brought back to the [facility] the same day in the evening. Patient's blood pressure on arrival was 142/107, pulse rate 66 and temperature 98.8. Patient was found to have paroxysmal atrial fibrillation. Patient underwent CT head , which showed hypodensity within the brainstem and right lisandra. This could be lacunar infarct of indeterminate age. CTA of neck showed atherosclerotic change at the bilateral carotid bifurcations with moderate approximately 50% stenosis of the right carotid bulb. Additional mild, less than 50% atherosclerotic stenosis distal right common carotid artery. Mild to moderate just under 50% narrowing of the left carotid bulb. Slightly dominant left vertebral artery, mild atherosclerotic narrowing at the origin of the right vertebral artery. CTA of the head showed [id number] atherosclerotic calcification throughout the bilateral carotid siphons. No large vessel intracranial arterial occlusion, significant stenosis or aneurysmal change seen. MRI of the brain revealed acute stroke involving the lisandra on the right, measuring 1 cm. MRA of the brain re vealed no large vessel intracranial arterial occlusion, significant stenosis or aneurysmal change. EKG showed sinus rhythm. 2-D echo showed atrial fibrillation. Borderline concentric LVH. EF 50-55%. Mild aortic valve sclerosis. Patient's total cholesterol is 117, LDL 61, HDL 39, triglycerides 85. UA negative, hepatic panel, renal panel normal. Electrolytes normal. CBC normal. Carotid Doppler showed no significant stenosis in either ICA. Patient currently has been maintained on aspirin 81 mg, Plavix 75 mg. Patient's telemetry monitoring showed arrhythmia. There is excessive PSVT, PAC. body art technician has not noticed any definitive atrial fibrillation, although it has been reported by the territory service representative. Patient states his left side symptoms have much improved, although still slightly weak but he can manage. He does not use any device. Patient has history of borderline diabetes for 15 years. Patient has smoked less than one pack per day for 22 years, quit in 80s. He also has history of dizziness off and on. Patient takes aspirin 81 mg daily for about 5 years. He was started on Plavix since his recent hospitalization at [facility]. Review of Systems As above in detail. Denies headache, diplopia, loss of vision. Still gets slurred P slightly. Denies chest pain shortness of breath wheezing cough or abdominal pain nausea vomiting diarrhea. Past Medical History Past Medical History: CVA/TIA, Diabetes Mellitus, Hyperlipidemia, Hypertension History of Any Multi-Drug Resistant Organisms: None Reported Past Surgical History: Appendectomy, Hernia Repair, Orthopedic Surgery Additional Past Surgical History / Comment(s): neck cyst ,nasal surgery,rt foot Past Psychological History: No Psychological Hx Reported Smoking Status: Never smoker Past Alcohol Use History: None Reported Past Drug Use History: None Reported Medications and Allergies Home Medications Medication Instructions Recorded Confirmed Type Aspirin [Adult Low Dose Aspirin EC] 81 mg PO DAILY 09/01/19 09/01/19 History Atorvastatin Calcium [Lipitor] 40 mg PO HS 09/01/19 09/01/19 History Clopidogrel [Plavix] 75 mg PO DAILY 09/01/19 09/01/19 History Finasteride [Proscar] 5 mg PO DAILY 09/01/19 09/01/19 History Losartan Potassium [Cozaar] 12.5 mg PO DAILY 09/01/19 09/01/19 History Tamsulosin HCl [Flomax] 0.8 mg PO DAILY 09/01/19 09/01/19 History amLODIPine [Norvasc] 5 mg PO DAILY 09/01/19 09/01/19 History metFORMIN HCL [Glucophage] 500 mg PO BID 09/01/19 09/01/19 History Allergies Allergy/AdvReac Type Severity Reaction Status Date / Time No Known Allergies Allergy Verified 09/01/19 20:25 Physical Examination - Vital Signs Vital Signs: Vital Signs Temp Pulse Resp BP Pulse Ox 09/04/19 11:39 16 09/04/19 08:00 97.2 F L 110 H 16 161/85 97 09/04/19 04:00 98 F 86 18 108/65 97 09/04/19 03:13 84 18 09/03/19 23:02 84 18 112/68 96 09/03/19 20:00 97.8 F 86 18 115/70 95 09/03/19 16:00 97.6 F 72 16 119/84 96 Intake and Output 09/04/19 09/04/19 09/04/19 06:59 14:59 22:59 Intake Total 480 Balance 480 Intake: Oral 480 Other: # Voids 1 Weight 81.7 kg On examination patient is an elderly male, in no acute distress. He is alert and awake fully oriented. Speech is mildly dysarthric only at certain times. Otherwise is very clear. No aphasia. Attention concentration fund of knowledge is adequate. On cranial nerve exam shows pupils are round and reactive to light, visual bee are full on confrontation, extraocular muscles are intact with no nystagmus. Patient has mild left facial asymmetry. Tongue protrudes to the midline. Palatal elevation and sensation normal. On muscle strength testing patient has mild left pronation, no drift. The strength however is normal in arms and legs distally and proximally. Reflexes are 1+ and plantars are downgoing bilaterally. Sensory touch is equal with no neglect. Patient has mild ataxia for [id number] testing on the left. Tone and bulk of muscles normal. Gait deferred. No carotid bruit or murmur. Peripheral pulses present. Results - Laboratory Findings CBC and BMP: 09/01/19 19:55 09/04/19 05:52 Abnormal Lab Findings: Abnormal Labs 09/01/19 09/01/19 09/01/19 19:35 19:55 19:55 Sodium 135 L BUN 29 H Creatinine 1.47 H Glucose 150 H POC Glucose (mg/dL) 153 H HDL Cholesterol 39 L 09/02/19 09/02/19 09/03/19 17:10 20:42 05:51 Sodium BUN Creatinine Glucose POC Glucose (mg/dL) 113 H 154 H 130 H HDL Cholesterol 09/03/19 09/03/19 09/03/19 06:09 11:43 17:06 Sodium BUN 23 H Creatinine Glucose 136 H POC Glucose (mg/dL) 148 H 129 H HDL Cholesterol 09/03/19 09/03/19 09/04/19 20:02 20:04 05:40 Sodium BUN Creatinine Glucose POC Glucose (mg/dL) 427 H 322 H 118 H HDL Cholesterol 09/04/19 09/04/19 05:52 11:31 Sodium 136 L BUN 24 H Creatinine Glucose 117 H POC Glucose (mg/dL) 155 H HDL Cholesterol Assessment and Plan Assessment: * Acute right pontine ischemic stroke, involving the right pontine child nurse, possible small vessel disease, although embolic process is also a possibility. * Hypertension * Diabetes * Hyperlipidemia Plan: * Patient currently is on aspirin 81 mg and Plavix 75 mg and high-dose statins Lipitor 80 mg. Neurologically these medications can be continued for right pontine ischemic stroke. * However if patient has atrial fibrillation, then neurologically clear to start anticoagulation as recommended by the territory service representative. * If anticoagulation is initiated, then would recommend stopping aspirin and keeping patient on Plavix 75 mg. * We will check hemoglobin A1c. * Gastric ulcer prophylaxis. * Neurologically clear otherwise.
[2019-09-04] MEDS: ATORVASTATIN 80 MG TAB PO SCH (20:20)
--- NOTE | 2019-09-04 21:16 | PN ---
PROGRESS NOTE DATE OF SERVICE: 09/04/2019 This 79-year-old gentleman who was admitted with dysarthria and weakness also had eye movement abnormalities. MRI showed significant lesion of the right lisandra, about 1.1 cm. Neurology is evaluating the patient closely. The patient has continued dizziness at this time. Multiple consultants, including Vascular Surgery, Neurology, Cardiology saw the patient. A 2D echo with Doppler was done by Cardiology which showed ejection fraction 50% to 55%, and no other significant abnormalities. PAST MEDICAL HISTORY: Reviewed. REVIEW OF SYSTEMS: ENT: As mentioned earlier. CARDIOVASCULAR SYSTEM: No angina or palpitations. RESPIRATORY SYSTEM: As mentioned earlier. GI: No nausea, vomiting. : No dysuria or retention. NERVOUS SYSTEM: As mentioned earlier. CURRENT MEDICATIONS: Current medications are reviewed and include: 1. Tylenol p.r.n. 2. Xanax 0.25 t.i.d. 3. Norvasc 5 mg p.o. daily. 4. Aspirin 81 mg p.o. daily. 5. Lipitor 80 mg at bedtime. 6. Plavix 75 mg p.o. daily. 7. Proscar 5 mg p.o. daily. 8. Heparin 5000 units subcutaneously b.i.d. 9. Cozaar 12.5 mg daily. 10.Glucophage 500 mg b.i.d. 11.Lopressor 50 mg p.o. b.i.d. 12.Protonix 40 mg daily. 13.Flomax 0.8 daily. PHYSICAL EXAMINATION: Patient is alert, oriented x3. Pulse 110, blood pressure 161/85, respirations 16, temperature 97.2, pulse ox 97% on room air. HEENT: Conjunctivae normal. Oral mucosa moist. NECK: No jugular venous distention. No carotid bruit. No lymph node enlargement. CARDIOVASCULAR SYSTEM: S1, S2 muffled. RESPIRATION: Breath sounds diminished in the bases. A few scattered rhonchi. ABDOMEN: Soft, nontender. No mass palpable. LEGS: No edema. No swelling. NERVOUS SYSTEM: Higher functions as mentioned earlier. The lateral rectus movement on the right is limited. There are some conjugate gaze abnormalities also noted. minimal weakness in the left upper and lower limbs. LABS: Sodium 136, potassium 4. CBC within normal limits. Glucose noted. Cholesterol is normal. ASSESSMENT: 1. Acute brainstem stroke with right pontine stroke causing left-sided weakness and right lateral rectus paralysis as well as dizziness. 2. Hyponatremia, possible hypovolemic. 3. Bilateral carotid artery stenosis, less than 50% plaques. 4. Acute renal failure with acute prerenal renal failure factors and acute tubular necrosis. 5. Continued symptomatic dizziness and gait dysfunction. 6. Increased creatinine with possible chronic kidney disease, stage III. 7. Diabetes mellitus, type 2. 8. Hypertension. 9. Hyperlipidemia. 10.History of appendectomy. 11.History of degenerative joint disease. 12.History of hernia repair. RECOMMENDATIONS AND DISCUSSION: I recommend to continue the current medications, continue with the monitoring, symptomatic treatment. Also at this time I recommend to continue with antiplatelet agents. PT/OT evaluation. Closely follow with Neurology. Neurological workup was noted. Neuro checks. Otherwise, once the patient is stable, we will also obtain a PT/OT evaluation and will consider either discharge to the ECF or to home, depending upon the patient's strength and ability to cope with PT/OT. Prognosis is guarded. Further recommendations to follow. Discussed with the patient at length. CHARLES / HAILEEN: [id number] / MARY
[2019-09-04 21:53] LABS: Hemoglobin A1C 6.6 % (4.0-6.0)
[2019-09-05 06:53] LABS: Calcium 9.5 mg/dL (8.4-10.2); Potassium 4.5 mmol/L (3.5-5.1)
[2019-09-05 07:29] LABS: Glucose,Whole Blood 111 mg/dL (75-99)
[2019-09-05] MEDS: PANTOPRAZOLE 40 MG TABLET PO SCH (07:37)
[2019-09-05] MEDS: ASPIRIN 81 MG PO SCH (07:37)
[2019-09-05] MEDS: INSULIN ASPART (NovoLOG) 100 UNIT/ML VIAL SQ SCH ×4 (07:37→20:40)
[2019-09-05] MEDS: metFORMIN 500 MG TAB PO SCH ×2 (07:38→20:40)
[2019-09-05] MEDS: METOPROLOL TARTRATE 50 MG TAB PO SCH ×2 (07:38→20:40)
[2019-09-05] MEDS: HEPARIN SODIUM,PORCINE 5,000 UNIT/ML 1 ML VIAL SQ SCH (07:38)
[2019-09-05] MEDS: FINASTERIDE 5 MG TAB PO SCH (07:38)
[2019-09-05] MEDS: LOSARTAN 25 MG TAB PO SCH (07:38)
[2019-09-05] MEDS: amLODIPine 5 MG TAB PO SCH (07:38)
[2019-09-05] MEDS: CLOPIDOGREL 75 MG TAB PO SCH (07:38)
[2019-09-05] MEDS: TAMSULOSIN 0.4 MG CAP.ER.24H PO SCH (07:39)
--- NOTE | 2019-09-05 08:33 | P.PN ---
Subjective This is a pleasant 79-year-old male past medical history significant for emeka-arrhythmia, CVA, hypertension, dyslipidemia and diabetes mellitus. He follows in the office with Dr. Villeda out of [facility] for cardiology. He denies prior history of atrial fibrillation in the past. Telemetry tracings indicate he is going in and out of afib during this hospitalization. He has suffered a CVA and has been started on aspirin and plavix per neurology. He is seen and examined sitting up in bed in no acute distress. He denies palpitations now or ever. He has no chest pain, dizziness or shortness of breath. Blood pressure 133/76 heart rate 52 afebrile maintaining oxygen saturation on room air. Laboratory data reviewed, sodium 135, potassium 4.5, creatinine 1.17. GENERAL: Well-appearing, well-nourished and in no acute distress. NECK: Supple without JVD or thyromegaly. LUNGS: Breath sounds clear to auscultation bilaterally. Respiration equal and unlabored. No wheezes, rales or rhonchi. HEART: Regular rate and rhythm with soft systolic ejection murmur at the left sternal border, no rubs or gallops. S1 and S2 heard. EXTREMITIES: Normal range of motion, no edema. No clubbing or cyanosis. Peripheral pulses intact. ASSESSMENT Paroxysmal atrial fibrillation, new onset. Currently maintaining sinus mechanism. Acute right pontine ischemic stroke Hypertension Dyslipidemia Diabetes mellitus PLAN Recommend retirement anti-coagulation for thromboembolic protection secondary to paroxysmal afib and history of CVA. Eliquis 5 mg BID has been sent to the pharmacy to check for the cost. Ok to discontinue aspirin per neurology. Plan has been discussed withe patient in great detail. Recommend close follow up with his primary sponsorship manager upon discharge. Nurse Practitioner note has been reviewed, I agree with a documented findings and plan of care. Patient was seen and examined. Objective - Vital Signs Vital signs: Vital Signs Temp 97.9 F 09/05/19 04:35 Pulse 52 L 09/05/19 04:35 Resp 16 09/05/19 04:35 BP 133/76 09/05/19 04:35 Pulse Ox 96 09/05/19 04:35 Intake & Output 09/04/19 09/05/19 09/05/19 18:59 06:59 18:59 Intake Total 480 Output Total 1 Balance 479 Intake: Oral 480 Output: Urine 1 Other: Voiding Method Toilet # Voids 2 - Labs CBC & Chem 7: 09/01/19 19:55 09/05/19 05:37 Labs: Abnormal Lab Results - Last 24 Hours (Table) 09/01/19 09/04/19 09/04/19 Range/Units 19:55 11:31 17:56 Sodium (137-145) mmol/L BUN (9-20) mg/dL Glucose (74-99) mg/dL POC Glucose (mg/dL) 155 H 196 H (75-99) mg/dL Hemoglobin A1c 6.6 H (4.0-6.0) % 09/04/19 09/05/19 09/05/19 Range/Units 19:54 05:37 07:25 Sodium 135 L (137-145) mmol/L BUN 25 H (9-20) mg/dL Glucose 115 H (74-99) mg/dL POC Glucose (mg/dL) 165 H 111 H (75-99) mg/dL Hemoglobin A1c (4.0-6.0) %
[2019-09-05] MEDS ORDERED: APIXABAN 5 MG TAB PO SCH (09:00)
[2019-09-05 11:46] LABS: Glucose,Whole Blood 134 mg/dL (75-99)
--- NOTE | 2019-09-05 13:54 | P.PN ---
Subjective Progress Note Date: 09/05/19 Patient is seen and examined lying in bed. Patient denies any acute changes through the night. No increase in any left-sided weakness or further focal deficits. Patient denies any shortness of breath or chest pain, denies any headaches or visual changes. Objective - Vital Signs Vital signs: Vital Signs Temp 97.6 F 09/05/19 12:38 Pulse 53 L 09/05/19 12:38 Resp 17 09/05/19 12:38 BP 124/67 09/05/19 12:38 Pulse Ox 99 09/05/19 12:38 Intake & Output 09/04/19 09/05/19 09/05/19 18:59 06:59 18:59 Intake Total 480 Output Total 1 Balance 479 Intake: Oral 480 Output: Urine 1 Other: Voiding Method Toilet # Voids 2 - Exam General appearance: The patient is alert, oriented, in no acute distress. HET: Head is normocephalic and atraumatic. Pupils are equal and reactive. Neck: Supple without lymphadenopathy. Trachea midline. No audible carotid bruit bilaterally. Heart: S1 S2. Regular rate and rhythm. Lungs: No crackles or wheezes are heard. Extremities: Normal skin color and turgor. No cyanosis, rash, ulceration, cl ubbing, or edema. Radial and pedal pulses are 2/4 bilaterally. Neurological: Patient has facial symmetry, speech is fluent. Right upper extremity strength 5/5, left upper extremity strength 4/5. Bilateral lower extremity strength 5/5. Sensory motor intact. - Labs CBC & Chem 7: 09/01/19 19:55 09/05/19 05:37 Labs: Abnormal Lab Results - Last 24 Hours (Table) 09/01/19 09/04/19 09/04/19 Range/Units 19:55 17:56 19:54 Sodium (137-145) mmol/L BUN (9-20) mg/dL Glucose (74-99) mg/dL POC Glucose (mg/dL) 196 H 165 H (75-99) mg/dL Hemoglobin A1c 6.6 H (4.0-6.0) % 09/05/19 09/05/19 09/05/19 Range/Units 05:37 07:25 11:23 Sodium 135 L (137-145) mmol/L BUN 25 H (9-20) mg/dL Glucose 115 H (74-99) mg/dL POC Glucose (mg/dL) 111 H 134 H (75-99) mg/dL Hemoglobin A1c (4.0-6.0) % Assessment and Plan Assessment: 1. Acute brainstem cerebral vascular accident likely secondary to thromboembolic disease related to atrial fibrillation. 2. Bilateral carotid artery stenosis less than 50% 3. New onset atrial fibrillation 4. Hypertension 5. Diabetes Plan: Continue medical management of his atrial fibrillation. Patient to follow-up with Dr. Granger for carotid stenosis as an outpatient, will need yearly carotid duplex imaging to monitor his carotid disease. The above dictated assessment and findings were discussed with Dr. Granger. The impression and plan of care have been directed as dictated.
--- NOTE | 2019-09-05 15:24 | P.PN ---
Subjective Progress Note Date: 09/05/19 Principal diagnosis: 09/05/2019 This is a 79-year-old male who was recently admitted with dysarthria and weakness and is being closely monitored. Patient underwent an MRI showing s ignificant lesion of the right lisandra approximately 1.1 cm. Patient continues to have some left side weakness but states it has slightly improved from yesterday. Neurology is following. Patient has been initiated on aspirin and Plavix and will continue at this time. Cardiology also following for new onset atrial fibrillation. PT/OT to follow. To continue with neuro checks and cardiac monitoring. Currently no reports of chest pain or palpitations. Patient is afebrile. Review of systems: Constitutional: No reports of fatigue or fevers Cardiovascular: No reports of chest pain or palpitations Respiratory: No reports of shortness of breath or cough GI: No reports of nausea, vomiting, or diarrhea. : No reports of dysuria or retention Nervous system: Reports some mild left-sided weakness and left-sided facial droop Active Medications Acetaminophen (Tylenol Tab) 500 mg PO Q6HR PRN PRN Reason: Fever and/ or Pain Alprazolam (Xanax) 0.25 mg PO TID PRN PRN Reason: Anxiety Amlodipine Besylate (Norvasc) 5 mg PO DAILY [facility] Last Admin: 09/05/19 07:38 Dose: 5 mg Documented by: Atorvastatin Calcium (Lipitor) 80 mg PO HS [facility] Last Admin: 09/04/19 20:20 Dose: 80 mg Documented by: Clopidogrel Bisulfate (Plavix) 75 mg PO DAILY [facility] Last Admin: 09/05/19 07:38 Dose: 75 mg Documented by: Finasteride (Proscar) 5 mg PO DAILY [facility] Last Admin: 09/05/19 07:38 Dose: 5 mg Documented by: Insulin Aspart (Novolog) 0 unit SQ [facility]; Protocol Last Admin: 09/05/19 12:26 Dose: 1 unit Documented by: Losartan Potassium (Cozaar) 12.5 mg PO DAILY [facility] Last Admin: 09/05/19 07:38 Dose: 12.5 mg Documented by: Metformin HCl (Glucophage) 500 mg PO BID [facility] Last Admin: 09/05/19 07:38 Dose: 500 mg Documented by: Metoprolol Tartrate (Lopressor) 50 mg PO BID [facility] Last Admin: 09/05/19 07:38 Dose: 50 mg Documented by: Pantoprazole Sodium (Protonix) 40 mg PO AC-BRKFST [facility] Last Admin: 09/05/19 07:37 Dose: 40 mg Documented by: Tamsulosin HCl (Flomax) 0.8 mg PO DAILY [facility] Last Admin: 09/05/19 07:39 Dose: 0.8 mg Documented by: Objective - Vital Signs Vital signs: Vital Signs Temp 97.6 F 09/05/19 12:38 Pulse 53 L 09/05/19 12:38 Resp 17 09/05/19 12:38 BP 124/67 09/05/19 12:38 Pulse Ox 99 09/05/19 12:38 Intake & Output 09/04/19 09/05/19 09/05/19 18:59 06:59 18:59 Intake Total 480 Output Total 1 Balance 479 Intake: Oral 480 Output: Urine 1 Other: Voiding Method Toilet # Voids 2 - Exam Gen: This is a 79-year-old male sitting up in bed, awake alert and oriented 3. Temp is 97.6F, pulse is 53, respirations are 17, blood pressure is 124/67, oxyg en saturation is 99% on room air. HEENT: Head is atraumatic, normocephalic. Pupils equal, round. Sclerae is anicteric. Mild left facial droop noted on exam. NECK: Supple. No JVD. No lymphadenopathy. No thyromegaly. LUNGS: Diminished breath sounds at the bases with a few scattered rhonchi noted. No wheezing or crackles noted on exam. No intercostal retractions. HEART: S1, S2 are muffled ABDOMEN: Soft. Bowel sounds are present. No masses. No tenderness. EXTREMITIES: No pedal edema. No calf tenderness. Left upper extremity strength 4/5, bilateral spinning supervisor strength 5/5, bilateral lower extremity strength 5/5 NEUROLOGICAL: Patient is awake, alert and oriented x3. Cranial nerves 2 through 12 are grossly intact. - Labs CBC & Chem 7: 09/01/19 19:55 09/05/19 05:37 Labs: Abnormal Lab Results - Last 24 Hours (Table) 09/01/19 09/04/19 09/04/19 Range/Units 19:55 17:56 19:54 Sodium (137-145) mmol/L BUN (9-20) mg/dL Glucose (74-99) mg/dL POC Glucose (mg/dL) 196 H 165 H (75-99) mg/dL Hemoglobin A1c 6.6 H (4.0-6.0) % 09/05/19 09/05/19 09/05/19 Range/Units 05:37 07:25 11:23 Sodium 135 L (137-145) mmol/L BUN 25 H (9-20) mg/dL Glucose 115 H (74-99) mg/dL POC Glucose (mg/dL) 111 H 134 H (75-99) mg/dL Hemoglobin A1c (4.0-6.0) % Assessment and Plan Assessment: Acute brainstem stroke with right pontine stroke causing left-sided weakness and right lateral rectus paralysis as well as dizziness Hyponatremia, possibly hypovolemic Bilateral carotid artery stenosis, less than 50% plaques Acute renal failure with acute prerenal renal failure factors and acute tubular necrosis Continued symptomatic dizziness and gait dysfunction Increased creatinine with possible chronic kidney disease, stage III Diabetes mellitus type 2 Hypertension Hyperlipidemia History of appendectomy History of degenerative joint disease History of hernia repair Recommendations and discussion: Recommend to continue current medications, management, and symptomatic treatment. Continue with aspirin and Plavix at this time. Awaiting to initiate anticoagulation of Eliquis at this time until neurologically cleared. Following closely with neurology. Cardiology and vascular surgery following the patient. Vascular surgery recommending outpatient follow-up once discharged. When discussing with the patient about discharge planning, patient states he will be returning home with his and feels that rehab at an [facility] is not necessary at this time. PT/OT to evaluate the patient. Due to multiple complex medical is sues, prognosis is guarded. Further recommendations to follow.
--- NOTE | 2019-09-05 15:30 | P.PN ---
Subjective Progress Note Date: 09/05/19 Patient was seen for a follow-up. Patient is sitting in the recliner chair, appears very comfortable. Denies any new focal symptoms. Objective - Vital Signs Vital signs: Vital Signs Temp 97.6 F 09/05/19 12:38 Pulse 53 L 09/05/19 12:38 Resp 17 09/05/19 12:38 BP 124/67 09/05/19 12:38 Pulse Ox 99 09/05/19 12:38 Intake & Output 09/04/19 09/05/19 09/05/19 18:59 06:59 18:59 Intake Total 480 Output Total 1 Balance 479 Intake: Oral 480 Output: Urine 1 Other: Voiding Method Toilet # Voids 2 - Exam Patient's mental status is normal. Speech is mildly dysarthric but no aphasia. On cranial nerve examination, pupils are round and reactive to light, visual bee are full. Extraocular muscles intact. Patient has left facial weakness, mild degree, central type. Tongue protrudes the midline. Palatal elevation and sensation normal. On muscle strength testing patient has very mild left pronation no drift. The strength is normal in the arms and legs. Sensation is slightly decreased in the left side of the body as compared to the right. Patient is mildl to moderately ataxic for [id number] testing on the left. Tone and bulk of muscles normal. Patient walks with a slight stoop. He appeared quite steady, was not using any device. - Labs CBC & Chem 7: 09/01/19 19:55 09/05/19 05:37 Labs: Abnormal Lab Results - Last 24 Hours (Table) 09/01/19 09/04/19 09/04/19 Range/Units 19:55 17:56 19:54 Sodium (137-145) mmol/L BUN (9-20) mg/dL Glucose (74-99) mg/dL POC Glucose (mg/dL) 196 H 165 H (75-99) mg/dL Hemoglobin A1c 6.6 H (4.0-6.0) % 09/05/19 09/05/19 09/05/19 Range/Units 05:37 07:25 11:23 Sodium 135 L (137-145) mmol/L BUN 25 H (9-20) mg/dL Glucose 115 H (74-99) mg/dL POC Glucose (mg/dL) 111 H 134 H (75-99) mg/dL Hemoglobin A1c (4.0-6.0) % Assessment and Plan Assessment: * Acute right pontine ischemic stroke, involving the right pontine 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 * Paroxysmal atrial fibrillation. * Hypertension * Diabetes * Hyperlipidemia Plan: * Patient currently is on aspirin 81 mg and Plavix 75 mg and high-dose statins Lipitor 80 mg. Neurologically these medications can be continued for right pontine ischemic stroke. * However patient also has paroxysmal atrial fibrillation, and anticoagulation is being recommended by the cardiology. * Discussed with Dr. Jarret Tyler in detail. As the size of right pontine stroke is fairly large, and with presence of underlying cavernous angioma, would keep on dual antiplatelet medication for one week and then may add Apixaban 5 mg twice a day. Once the anticoagulation is initiated, then would recommend stopping aspirin and keeping patient on Plavix 75 mg. * Hemoglobin A1c 6.6. * Gastric ulcer prophylaxis. * Neurologically clear otherwise.
[2019-09-05 17:17] LABS: Glucose,Whole Blood 129 mg/dL (75-99)
[2019-09-05 20:15] LABS: Glucose,Whole Blood 146 mg/dL (75-99)
[2019-09-05 20:37] VITALS: RESP 18
[2019-09-05] MEDS: ATORVASTATIN 80 MG TAB PO SCH (20:40)
[2019-09-06 05:09] VITALS: BP 122/65; TEMP 97.8
[2019-09-06 07:05] LABS: Glucose,Whole Blood 121 mg/dL (75-99)
[2019-09-06] MEDS ORDERED: ASPIRIN 81 MG PO SCH (09:00)
[2019-09-06] MEDS: INSULIN ASPART (NovoLOG) 100 UNIT/ML VIAL SQ SCH (09:06)
[2019-09-06] MEDS: TAMSULOSIN 0.4 MG CAP.ER.24H PO SCH (10:16)
[2019-09-06] MEDS: METOPROLOL TARTRATE 50 MG TAB PO SCH (10:17)
[2019-09-06] MEDS: metFORMIN 500 MG TAB PO SCH (10:17)
[2019-09-06] MEDS: LOSARTAN 25 MG TAB PO SCH (10:17)
[2019-09-06] MEDS: amLODIPine 5 MG TAB PO SCH (10:18)
[2019-09-06] MEDS: FINASTERIDE 5 MG TAB PO SCH (10:18)
[2019-09-06] MEDS: CLOPIDOGREL 75 MG TAB PO SCH (10:18)
[2019-09-06 11:32] VITALS: PULSE 66
[2019-09-06 11:38] LABS: Glucose,Whole Blood 165 mg/dL (75-99)
--- NOTE | 2019-09-06 15:11 | P.DS ---
Providers Date of admission: 09/01/19 20:44 Expected date of discharge: 09/06/19 Attending physician: Jarret Tyler Consults: 09/02/19 14:24 Consult Physician Routine Consulting Provider: Clark Granger Consult Reason/Comments: stroke mild carotid and vertebral atenosis Do you want consulting provider notified?: Yes 09/03/19 01:57 Consult Physician Routine Consulting Provider: Obdulio Duran Consult Reason/Comments: new onset A-Fib Do you want consulting provider notified?: Yes 09/04/19 14:57 Consult Physician Stat Consulting Provider: Adelina Nieto Consult Reason/Comments: cva Do you want consulting provider notified?: Yes Primary care physician: Stephon Willis [facility] Course: Final diagnosis Acute brainstem stroke with right pontine stroke causing left-sided weakness and right lateral rectus paralysis as well as dizziness Hyponatremia, possibly hypovolemic Bilateral carotid artery stenosis, less than 50% plaques Acute renal failure with acute prerenal renal failure factors and acute tubular necrosis Continued symptomatic dizziness and gait dysfunction Increased creatinine with possible chronic kidney disease, stage III Diabetes mellitus type 2 Hypertension Hyperlipidemia History of appendectomy History of degenerative joint disease History of hernia repair Discharge disposition Patient is being discharged in a stable condition with guarded prognosis to home and will follow-up with Dr. Willis in the outpatient setting. Patient will also be following up with his [employer] consultant Dr. Matta to schedule a 30 day event monitor along with a follow-up. Patient will be continued on aspirin and Plavix and will initiate anticoagulation Eliquis in one week. Total time taken is 35 minutes. History of present illness This 79-year-old male who was recently admitted with dysarthria and weakness and was being closely monitored. Patient underwent an MRI showing significant lesion of the right lisandra approximately 1.1 cm and was being evaluated and followed with by neurology. Patient continued to have some dizziness and was seen and evaluated by cardiology and was found to have atrial fibrillation new- onset. Cardiology recommending anticoagulation although given the size and location of the lesion noted patient will be continued on Plavix and aspirin and will wait 1 week until starting Eliquis. Once anticoagulation is initiated p atient will continue with Plavix and may discontinue aspirin. Patient follows with his [employer] consultant Dr. Reinaldo Lau in the [place] area and was instructed to follow-up with them this week to schedule an event monitor for 30 days. Patient was initiated on metoprolol and will continue at this time. He was taking sotalol and this was discontinued. Patient continues to have some mild left-sided weakness approximately 4/5 strength and has a steady gait. Patient refusing rehab at this time. Currently no reports of chest pain, shortness of breath, or palpitations. Patient is afebrile. No reports of nausea or vomiting and patient is tolerating diet. Patient will be discharged today. On exam vital signs are stable. Temp is 97.8F, pulse is 54, respirations are 18, blood pressure is 122/65, oxygen saturation is 97% on room air. Cardio S1, S2 are present. Respiratory system shows clear to auscultation. Abdomen is soft and nontender. Nervous system shows no focal deficits. Please refer to medication reconciliation sheet for a list of medications. Patient Condition at Discharge: Stable Plan - Discharge Summary Discharge Rx Participant: Yes New Discharge Prescriptions: New Apixaban [Eliquis] 5 mg PO BID #180 tab Atorvastatin [Lipitor] 80 mg PO HS 30 Days #30 tab Metoprolol Tartrate [Lopressor] 50 mg PO BID 30 Days #60 tab Continue amLODIPine [Norvasc] 5 mg PO DAILY Aspirin [Adult Low Dose Aspirin [facility]] 81 mg PO DAILY Clopidogrel [Plavix] 75 mg PO DAILY Finasteride [Proscar] 5 mg PO DAILY Losartan Potassium [Cozaar] 12.5 mg PO DAILY metFORMIN HCL [Glucophage] 500 mg PO BID Tamsulosin HCl [Flomax] 0.8 mg PO DAILY Discontinued Atorvastatin Calcium [Lipitor] 40 mg PO HS Discharge Medication List Aspirin [Adult Low Dose Aspirin [facility]] 81 mg PO DAILY 09/01/19 [History] Clopidogrel [Plavix] 75 mg PO DAILY 09/01/19 [History] Finasteride [Proscar] 5 mg PO DAILY 09/01/19 [History] Losartan Potassium [Cozaar] 12.5 mg PO DAILY 09/01/19 [History] Tamsulosin HCl [Flomax] 0.8 mg PO DAILY 09/01/19 [History] amLODIPine [Norvasc] 5 mg PO DAILY 09/01/19 [History] metFORMIN HCL [Glucophage] 500 mg PO BID 09/01/19 [History] Apixaban [Eliquis] 5 mg PO BID #180 tab 09/05/19 [Rx] Atorvastatin [Lipitor] 80 mg PO HS 30 Days #30 tab 09/06/19 [Rx] Metoprolol Tartrate [Lopressor] 50 mg PO BID 30 Days #60 tab 09/06/19 [Rx] Follow up Appointment(s)/Referral(s): Clark Granger DO [STAFF PHYSICIAN] - 4 Weeks Reinaldo Lau DO [REFERRING] - 1 Week Stephon Willis MD [Primary Care Provider] - 1-2 days Patient Instructions/Handouts: Metoprolol (By mouth), Atorvastatin (By mouth), Apixaban (By mouth) Activity/Diet/Wound Care/Special Instructions: Activity Limited until follow-up Continue with aspirin and Plavix daily Start Eliquis on 09/13/2019 and discontinue aspirin at this time Follow-up with cardiology this week to schedule a 30 day event monitor and follow up appointment Follow-up with primary care provider upon discharge Continue current diet Discharge Disposition: HOME SELF-CARE
== END 2019-09-06 14:19 | disposition home or self-care (01) | DRG 64 ==
LOC: SUPCPDRO 19:33 → EC 19:33 → 3SCARD 20:44 → 5NMEDONC 09-04 18:35
PROVIDERS: ADMIT Hospitalist; ATTEND Hospitalist
DX: I63.89 Other cerebral infarction (principal); N17.0 Acute kidney failure with tubular necrosis; G81.94 Hemiplegia, unspecified affecting left nondominant side; E87.1 Hypo-osmolality and hyponatremia; R29.704 NIHSS score 4; D18.09 Hemangioma of other sites; E11.22 Type 2 diabetes mellitus with diabetic chronic kidney disease; I12.9 Hypertensive chronic kidney disease with stage 1 through stage 4 chronic kidney disease, or unspecified chronic kidney disease; N18.3 Chronic kidney disease, stage 3 (moderate); E78.5 Hyperlipidemia, unspecified; I10 Essential (primary) hypertension; H49.21 Sixth [abducent] nerve palsy, right eye; I35.8 Other nonrheumatic aortic valve disorders; I44.0 Atrioventricular block, first degree; I48.0 Paroxysmal atrial fibrillation; I65.23 Occlusion and stenosis of bilateral carotid arteries; Z79.02 Long term (current) use of antithrombotics/antiplatelets; Z79.82 Long term (current) use of aspirin; Z79.84 Long term (current) use of oral hypoglycemic drugs; Z79.899 Other long term (current) drug therapy; Z86.73 Personal history of transient ischemic attack (TIA), and cerebral infarction without residual deficits; Z87.891 Personal history of nicotine dependence; Z90.49 Acquired absence of other specified parts of digestive tract; M19.90 Unspecified osteoarthritis, unspecified site
CPT/HCPCS: 36415; 70450; 70496; 70498; 70544; 70553; 71046; 80048; 80053; 80061; 81003; 83036; 84484; 85025; 85610; 85730; 93005; 93306; 93880; 96360; 99291